=== PATIENT | female | born 1980 | race Caucasian/White ===

== ENCOUNTER 2024-07-12 17:10 | Emergency (ER) | payer OTHER ==
[~2024-07-12] VITALS: Ht 152.4 cm; Wt 72.6 kg
[~2024-07-12 17:10] MED LIST: AZIT250 PO; AZIT500 PO; BACITO TP; CEPH500 PO; CIPR500 PO; CLIN150 PO; Cleocin HCl300 MG PO; DIAZ5 PO; HYDACE10B PO; HYDACE5 PO; IBUP600 PO; IBUP800 PO; LEVSOD75; LEVSOD88 PO; NAPR500 PO; Norco 5-325 Ta1 EACH PO; ONDA4ODT MM; OXYACE5T PO; OXYC10TA19 PO; PROM25 PO; PSEU120ER PO; RXHYDACE PO; Roxicodone5 MG PO; SULTRIDS PO; TRAM50; TRAM50 PO
[2024-07-12 17:41] VITALS: BP 153/84
[2024-07-12] MEDS ORDERED: Bactrim Ds Tab1 EACH PO (17:51)
== END 2024-07-12 18:10 | disposition home or self-care (01) ==
LOC: ER 17:10
DX: L08.9 Local infection of the skin and subcutaneous tissue, unspecified (principal); E03.9 Hypothyroidism, unspecified; Z87.891 Personal history of nicotine dependence; Z88.0 Allergy status to penicillin; Z79.2 Long term (current) use of antibiotics
CPT/HCPCS: 99283